=== PATIENT | male | born 1980 ===

== ENCOUNTER 2017-06-11 13:38 | Emergency (ER) | payer SELFPAY ==
[2017-06-11 13:52] VITALS: PULSE 78; RESP 16; TEMP 98.1
[2017-06-11] MEDS ORDERED: Tmp-Smz 800 mg-160 mg DS Tab PO STA (14:00)
--- NOTE | 2017-06-11 14:00 | C.PDOC ---
History Of Present Illness 36 year old male presents to the ED with complaints of bumps to bilateral under arms for three days. Patient believes the bumps are "boils" that developed from use of new deodorant. He denies fever, drainage, or other associated complaints. Time Seen by Provider: 06/11/17 13:56 Chief Complaint (Nursing): Abnormal Skin Integrity History Per: Patient History/Exam Limitations: no limitations Onset/Duration Of Symptoms: Days (3 days ) Current Symptoms Are (Timing): Still Present Recent travel outside of the [place]: No Past Medical History Reviewed: Historical Data, Nursing Documentation, Vital Signs Vital Signs: Last Vital Signs Temp 98.1 F 06/11/17 13:47 Pulse 78 06/11/17 13:47 Resp 16 06/11/17 14:31 BP 110/68 06/11/17 14:31 Pulse Ox 100 06/11/17 15:04 Family History: States: Unknown Family Hx - Social History Hx Alcohol Use: Yes Hx Substance Use: Yes Review Of Systems Constitutional: Negative for: Fever, Chills Cardiovascular: Negative for: Chest Pain Respiratory: Negative for: Cough, Shortness of Breath Skin: Positive for: Rash Physical Exam - Physical Exam Appears: Non-toxic, No Acute Distress Skin: Warm, Dry, Rash (mild erythematous papules and pustules to bilateral axilla with no fluctuance or induration) Head: Atraumatic, Normacephalic Eye(s): bilateral: Normal Inspection Neck: Normal ROM Chest: Symmetrical, No Deformity Cardiovascular: Rhythm Regular, No Murmur Respiratory: Normal Breath Sounds, No Rales, No Rhonchi, No Wheezing Gait: Steady ED Course And Treatment O2 Sat by Pulse Oximetry: 100 (room air ) Pulse Ox Interpretation: Normal Progress Note: Bactrim was applied. Medical Decision Making Medical Decision Making: patient with complaints of bumps to bilateral axilla. Exam reveals papules and pustules, no induration or tender masses. Will treat with Bactrim. Advise to apply warm compress to area and follow up for further eval. Disposition Counseled Patient/Family Regarding: Diagnosis, Need For Followup - Disposition Referrals: [facility] [Outside] Disposition: HOME/ ROUTINE Disposition Time: 13:59 Condition: STABLE Additional Instructions: You may apply warm compress to areas. Take antibiotic twice daily for 5 days. 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 - Scribe Statement The provider has reviewed the documentation as recorded by the Scribe Tyra Lino All medical record entries made by the Jaelynibcarmencita were at my direction and personally dictated by me. I have reviewed the chart and agree that the record accurately reflects my personal performance of the history, physical exam, medical decision making, and the department course for this patient. I have also personally directed, reviewed, and agree with the discharge instructions and disposition.
[2017-06-11] MEDS ORDERED: Tmp-Smz 800 mg-160 mg DS Tab ONE (14:09)
[2017-06-11 14:33] VITALS: BP 110/68
[2017-06-11 14:59] VITALS: O2SAT 100
== END 2017-06-11 14:31 | disposition home or self-care (01) ==
LOC: C.ER 13:38
DX: L73.9 Follicular disorder, unspecified (principal)